=== PATIENT | female | born 1950 | race Caucasian/White ===

== ENCOUNTER → 2016-05-03 | Outpatient (CLI) | payer MEDICARE, BC ==
--- NOTE | 2016-05-03 16:53 | REP ---
TWO VIEW CHEST: COMPARISON: 03/04/2008. There is no evidence of acute infiltrate. No pleural effusion is seen. The heart is normal in size. The mediastinal silhouette is unremarkable. The visualized osseous structures are intact. There are degenerative changes of the spine. IMPRESSION: No acute pulmonary disease. Signed by Santi Aden MD 05/03/2016 07:41 P
== END ==
LOC: M WUC 12:14
PROVIDERS: ATTEND Nurse Practitioner Adult Health
DX: J06.9 Acute upper respiratory infection, unspecified (principal); R05 Cough

== ENCOUNTER 2018-03-27 13:04 | Outpatient (RCR) | payer MEDICARE, BC | END 2018-04-01 | LOC: M OT 13:04 | PROVIDERS: ATTEND Family Medicine | DX: M79.645 Pain in left finger(s) (principal) | CPT/HCPCS: 97010; 97110; 97140; 97165; G8984; G8985 ==

== ENCOUNTER 2018-04-24 12:51 | Outpatient (RCR) | payer MEDICARE, BC | END 2018-05-02 | LOC: M OT 12:51 | PROVIDERS: ATTEND Family Medicine | DX: M79.642 Pain in left hand (principal) ==

== ENCOUNTER → 2020-08-19 | Outpatient (CLI) | payer MEDICARE, BC ==
--- NOTE | 2020-08-19 13:40 | REP ---
INDICATION: RT FEMUR MASS SOFT TISSUE. COMPARISON: None. TECHNIQUE: Multiple sequences obtained in the axial, coronal and sagittal planes. FINDINGS: In the soft tissues deep to the posterior thigh musculature there is a heterogeneous mass. It is diffusely hypointense on T1 weighted images and is predominantly heterogeneously hyperintense on T2 weighted images. There are some areas of ill-defined mild hypointensity scattered throughout the mass. There is adjacent surrounding soft tissue edema both superiorly and inferiorly. The mass measures approximately 13.3 x 6.9 x 9.5 cm. There may be some central ill-defined fluid representing necrosis. A benign oval lipoma is seen in the anterior mid thigh musculature, measuring approximately 2.6 x 0.7 x 1.4 cm. The visualized right femur demonstrates normal bone marrow signal with no edema or lesion identified. There is a small right knee joint effusion. No other mass is seen in the visualized soft tissues. IMPRESSION: Large soft tissue mass deep to the posterior thigh musculature worrisome for sarcoma. Recommend ultrasound-guided biopsy. <Electronically signed by Santi Aden > 08/19/20 [id number]
== END ==
LOC: M RAD 10:28
PROVIDERS: ATTEND Orthopaedic Surgery
DX: M79.89 Other specified soft tissue disorders (principal); D17.9 Benign lipomatous neoplasm, unspecified

== ENCOUNTER 2020-11-14 10:57 | Inpatient (IN) | payer MEDICARE, BC ==
[~2020-11-14] VITALS: Ht 157.5 cm; Wt 75.0 kg
--- NOTE | 2020-11-14 12:40 | REP ---
INDICATION: pre op. COMPARISON: 03/04/2008. TECHNIQUE: Portable chest FINDINGS: The lungs are clear. The heart is not enlarged. There is no failure. IMPRESSION: No active process. <Electronically signed by Rahul Dunn > 11/14/20 [id number]
--- NOTE | 2020-11-14 12:41 | REP ---
INDICATION: trauma. COMPARISON: None. TECHNIQUE: Two views FINDINGS: Spiral fractures midshaft tibia and fibula. Hardware in place distal tibia and fibula. IMPRESSION: Acute spiral fractures mid shaft tibia and fibula. <Electronically signed by Rahul Dunn > 11/14/20 [id number]
--- NOTE | 2020-11-14 12:43 | REP ---
INDICATION: trauma. COMPARISON: None. TECHNIQUE: Two views FINDINGS: Spiral fracture mid shaft of the tibia and midshaft of the fibula. Hardware in place the distal tibia and fibula. IMPRESSION: Spiral midshaft fractures distal tibia and fibula. Hardware in place distal tibia and fibula. No fracture involving the ankle. <Electronically signed by Rahul Dunn > 11/14/20 [id number]
[2020-11-14 13:17] LABS: RSV AMPLIFICATION NEGATIVE (NEGATIVE)
--- NOTE | 2020-11-14 13:23 | REP ---
INDICATION: evaluation from fall. COMPARISON: None. TECHNIQUE: Three views FINDINGS: Nondisplaced fracture proximal fibula. No other fractures. Alignment normal. IMPRESSION: Nondisplaced fracture proximal fibula. <Electronically signed by Rahul Dunn > 11/14/20 [id number]
[2020-11-14] MEDS ORDERED: D5W/0.45% SODIUM CHLORIDE 1,000 ML IV ONE (13:50)
[2020-11-14 14:00] LABS: HEMATOCRIT 31.2 % (36.0-47.0); HEMOGLOBIN 9.6 g/dl (12.0-15.5); MEAN CORPUSCULAR HEMOGLOBIN 25.7 pg (27.0-33.0); MEAN CORPUSCULAR HGB CONC 30.8 g/dl (32.0-36.5); MEAN CORPUSCULAR VOLUME 83.4 fl (80.0-96.0); PLATELET COUNT, AUTOMATED 148 10^3/uL (150-450); RED BLOOD COUNT 3.74 10^6/uL (4.00-5.40)
[2020-11-14 14:02] LABS: WHITE BLOOD COUNT 17.7 10^3/uL (4.0-10.0)
[2020-11-14] MEDS ORDERED: GLUCAGON INJ 1MG VIAL SC PRN (14:15)
[2020-11-14] MEDS ORDERED: MORPHINE 4 MG/ML 1ML VIAL/SYRINGE (J2270) IV PRN (14:15)
[2020-11-14] MEDS ORDERED: DEXTROSE 50% 50 ML SYRINGE IV PRN (14:15)
[2020-11-14] MEDS ORDERED: GLUCOSE 4GM CHEW TABLET PO PRN (14:15)
[2020-11-14 14:21] LABS: BLOOD UREA NITROGEN 10 MG/DL (7-18); CALCIUM LEVEL 8.2 MG/DL (8.8-10.2); CARBON DIOXIDE LEVEL 31 MEQ/L (21-32); CHLORIDE LEVEL 106 MEQ/L (98-107); CREATININE FOR GFR 0.69 MG/DL (0.55-1.30); GLOMERULAR FILTRATION RATE > 60.0 (>39); GLUCOSE, FASTING 61 MG/DL (70-100); POTASSIUM SERUM 4.6 MEQ/L (3.5-5.1); SODIUM LEVEL 142 MEQ/L (136-145)
[2020-11-14 14:27] LABS: ATYPICAL LYMPH 14 % (0-5); BLAST CELLS 3 % (0-0); LYMPHOCYTES 11 % (16-44); MONOCYTES 6 % (0-5); NEUTROPHILS 41 % (28-66); PLATELET ESTIMATE NORMAL (NORMAL)
[2020-11-14 14:28] LABS: HYPOCHROMASIA 1+; PLATELET CLUMPS SMALL AMT
[2020-11-14 14:29] LABS: BURR CELLS 1+; POLYCHROMASIA 1+
[2020-11-14] MEDS ORDERED: FENTANYL REMOVAL DOCUMENTATION MISC XX SCH (14:30)
[2020-11-14] MEDS ORDERED: D5W/0.9% SODIUM CHLORIDE 1,000 ML IV SCH (14:55)
--- NOTE | 2020-11-14 14:56 | REP ---
INDICATION: further evaluation pre-op. COMPARISON: None. TECHNIQUE: Axial scans without contrast. FINDINGS: There is a spiral comminuted fracture involving the mid-distal shaft of the tibia with a large butterfly fragment. There is slight lateral displacement the distal fragment. There is a spiral fracture involving the midshaft of the fibula as well. Hardware is in place in the medial malleolus and distal fibula after old fractures. IMPRESSION: Spiral comminuted fracture mid-distal shaft of the tibia with large butterfly fragment. Spiral fracture distal-mid shaft fibula. <Electronically signed by Rahul Dunn > 11/14/20 [id number]
[2020-11-14] MEDS ORDERED: HYDR-3363 PO (15:28)
[2020-11-14] MEDS ORDERED: ONDA8TAB10 PO (15:28)
[2020-11-14] MEDS ORDERED: D31000TA2 PO (15:28)
[2020-11-14] MEDS ORDERED: OMEG10002 PO (15:28)
[2020-11-14] MEDS ORDERED: ENAL20TA11 PO (15:28)
[2020-11-14] MEDS ORDERED: PANT40TA29 PO (15:28)
[2020-11-14] MEDS ORDERED: FENT50DI5 TOP (15:28)
[2020-11-14] MEDS ORDERED: ATOR1TAB21 PO (15:28)
[2020-11-14] MEDS ORDERED: OLAN1TAB16 PO (15:28)
[2020-11-14] MEDS ORDERED: FLUO40CA PO (15:28)
[2020-11-14] MEDS ORDERED: SENN1TAB41 PO (15:28)
[2020-11-14] MEDS ORDERED: ASPI-255 PO (15:28)
[2020-11-14] MEDS ORDERED: OXYC-517 PO (15:28)
[2020-11-14] MEDS ORDERED: PROC10TA4 PO (15:28)
[2020-11-14] MEDS ORDERED: TOUJ1.2I SQ (15:28)
[2020-11-14] MEDS ORDERED: PREG100C PO (15:28)
[2020-11-14] MEDS: oxyCODONE 5MG TAB PO PRN (16:31)
--- NOTE | 2020-11-14 16:40 | HPEPDOC ---
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 On ROS she reports no recent illness, no recent history of fever, chills, sweats, cough, congestion, chest pain, palpitations, POWERS, LE edema, sick contacts or dizziness. In the ED she was noted to be febrile to 101.4 and was otherwise normotensive, breathing comfortably on room air. Workup was notable for leukocytosis to 17.7, Hgb 9.6, per her recent baseline, platelet 148, na 142, K 4.6, BUN 10, Cr 0.69, glucose 61 while reporting last meal to have been yesterday evening. CXR was wnl without acute pathology, while R ankle XR showed a spiral midshaft fracture in distal tibia and fibula, a R tib/fib XR that showed an acute spiral fracture in midshaft tibia and fibula while R knee XR showed a nondisplaced fracture of the proximal fibula. Given that the R tib/fib fracture occurred on the side that a lso has a sarcoma, the ED reached out to her oncologist who recommended expectant surgery by orthopedics. Orthopedics was consulted and requested a CT of the R ankle with tentative plan to taker to the OR for surgery this evening. In the meantime, medicine was consulted for admission and presurgery medical evaluation. PAST MEDICAL HISTORY: HTN HLD DM RLE stage 3 sarcoma s/p cycle 1 of chemo, pending cycle 2 on 11/22, follows with oncology at [facility], not on CPAP Obesity SOCIAL HISTORY: Tobacco use: none ETOH: none Illicit drug use: none FAMILY HISTORY: Father: not sure of his history Mother: from [place] Children: Asthma Maternal grandmother: pernicious anemia, ischemic bowel ALLERGIES: Please see below. REVIEW OF SYSTEMS: 10 point ROS was completed and otherwise negative, except as noted in the HPI HOME MEDICATIONS: Please see below. PHYSICAL EXAMINATION: VITAL SIGNS: see below GENERAL APPEARANCE: NAD, obese HEENT: NCAT, EOMI, MMM CARDIOVASCULAR: No murmurs, regular but with some ectopy, tele not on in the room, pending EKG LUNGS: CTAB, on room air ABDOMEN: obese, soft, NTND MUSCULOSKELETAL: RLE with red bruising in distal area close to ankle, RLE edema, pain on palpation, LLE wnl without edema or pain EXTREMITIES: WWP, RLE with edema NEUROLOGICAL: CN3-12 intact, RLE limited by pain PSYCHIATRIC: AOx3 LABORATORY DATA and IMAGING: summarized above, please see below for full details MICROBIOLOGY: Please see below. 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 PLAN: Presurgery medical evaluation: -Euvolemic, breathing comfortably on room air, no wheezing without hypoxemia -ordered EKG, recent NSR on 11/06 -She had a TTE on 11/06 that showed normal systolic and diastolic function with EF 569% with no pericardial effusion -Renal function is at baseline and within normal limits -Bp is well controlled, will plan to resume her ACEi tomorrow -She is medically cleared at this time for orthopedic surgery Spiral midshaft fracture in distal tibia and fibula -pending orthopedic surgery, Dr. Valentine consulted -pain management: on fentanyl match per onc 50mg/hr Q72H due for changing today and I am changing it now -oxy 5Q4HP for moderate to severe pain -NPO for surgery -coags DM: -hold injectable antihyperglycemic therapy -Q6H FSBG -Q6H SSI -d5NS at 50cc/hr while NPO and hypoglycemic HTN: -will resume enalapril tomorrow GERD: -is on protonix 40 BID and omeprazole? will change omperazole to pepcid for severe GERD Bipolar, depression, anxiety: -continue olanzapine, setraline, xanax, hydroxyzine per outpatient scripts Sarcoma: -s/p cycle 1 of chemo, pending cycle 2 on 11/22 -Oncology aware of pending orthopedic surgery -continue fentanyl patch and oxy as ntoed above -will continue PRN zofran and compazine HLD: -will continue statin tomorrow AM DVT ppx: TEDs and SCD for now pre-surgery Dispo: medsurg Vital Signs Vital Signs Date Time Temp Pulse Resp B/P (MAP) Pulse Ox O2 Delivery O2 Flow Rate FiO2 11/14/20 14:20 101.6 86 18 123/60 (81) 93 Room Air Laboratory Data Labs 24H Laboratory Tests 2 11/14/20 12:32: Coronavirus (COVID-19)(PCR) NEGATIVE, Influenza Type A (RT-PCR) NEGATIVE, Influenza Type B (RT-PCR) NEGATIVE, Respiratory Syncytial Virus (PCR) NEGATIVE 11/14/20 13:45: Bedside Glucose (Misc Panel) 61L 11/14/20 13:50: Immature Granulocyte % (Auto) , Neutrophils (%) (Auto) , Nucleated Red Blood Cells % (auto) 0.7H, Neutrophils 41, Band Neutrophils 25H, Lymphocytes (Manual) 11L, Monocytes (Manual) 6H, Blastocytes 3H, Atypical Lymphocytes 14H, Polychromasia 1+, Hypochromasia 1+, Macrocytosis 1+, [place] Cells 1+, Platelet Estimate NORMAL, Clumped Platelets SMALL AMT, Anion Gap 5L, Glomerular Filtration Rate > 60.0, Calcium Level 8.2L CBC/BMP Laboratory Tests 11/14/20 13:50 Allergies Coded Allergies: Contrast Media (Verified Allergy, Unknown, 10/27/14) A-FIB/CHADSVASC A-FIB History Current/History of A-Fib/PAF?: No Current PO Anticoag Therapy: No Age/Risk Factor Scoring CHADSVASC: CHADSVASC Response (Comments) Value Age Risk Factor Age 65-74 years old 1 Gender Risk Factor Female 1 Hx of HTN Yes 1 Hx of Stroke/TIA/or VTE No 0 Hx of Diabetes Yes 1 Hx of Vascular Disease No 0 Total 4 Treatment Treatment ordered: NONE Reason Anticoagulant not given: Not indicated/[id number] EKATERINA LOCKETT MD Nov 14, 2020 16:31
[2020-11-14] MEDS ORDERED: HOME MED LIST COMPLETE! XX SCH (17:00)
[2020-11-14] MEDS: ACETAMINOPHEN TAB 650MG DOSE (2X325MG) PO PRN (17:49)
[2020-11-14] MEDS: HumaLOG INSULIN (NovoLOG) PER UNIT SC SCH ×2 (18:00→23:28)
[2020-11-14] MEDS ORDERED: MIDAZOLAM INJ 2MG/2ML VIAL (J2250 PER 1MG) As Ordered ONE (18:26)
[2020-11-14] MEDS ORDERED: fentaNYL 250 MCG/5 ML INJECTION (J3010) As Ordered ONE (18:26)
[2020-11-14] MEDS ORDERED: propofoL 200 MG/20 ML VIAL As Ordered ONE (18:27)
[2020-11-14] MEDS ORDERED: dexameTHASONE 4 MG/ML 1ML VIAL (J1100 PER 1MG) As Ordered ONE (18:27)
[2020-11-14] MEDS ORDERED: LIDOCAINE 2% 100MG/5ML SDV (FOR ANES.) As Ordered ONE (18:27)
[2020-11-14] MEDS ORDERED: ROCURONIUM BROMIDE 50 MG/5 ML VIAL As Ordered ONE ×3 (18:27→20:41)
[2020-11-14] MEDS ORDERED: ONDANSETRON 4MG/2ML VIAL As Ordered ONE (18:27)
[2020-11-14] MEDS ORDERED: CLINDAMYCIN 600 MG/50 ML PREMIX BAG As Ordered ONE (18:57)
[2020-11-14] MEDS ORDERED: TRANEXAMIC ACID 100 MG/ML 10ML VIAL As Ordered ONE (18:58)
[2020-11-14] MEDS ORDERED: SUGAMMADEX SODIUM 500 MG/5 ML VIAL (BRIDION) As Ordered ONE (19:23)
[2020-11-14] MEDS ORDERED: ACETAMINOPHEN 1000MG 100ML IV BTL (OFIRMEV) (J0131 PER 10MG) As Ordered ONE (19:23)
[2020-11-14] MEDS ORDERED: METOCLOPRAMIDE INJ 10MG/2ML VIAL (J2765 PER 1) As Ordered ONE (19:25)
--- NOTE | 2020-11-14 19:27 | CR ---
CONSULTATION DATE: 11/14/2020 REASON FOR CONSULTATION: Right lower extremity pain and deformity. CHIEF COMPLAINT: Right lower extremity pain and deformity. HISTORY OF PRESENT ILLNESS: The patient is a 70-year-old female with a history of stage 3 soft tissue right medial thigh sarcoma as well as diabetes, hypertension, hyperlipidemia, gastroesophageal reflux disease, anemia, bipolar and anxiety, who tripped and fell over her dog at home earlier today, with her daughter witnessing the event. She proceeded to twist her right leg and noted immediate onset of pain and inability to bear weight. She also had a deformity and presented to the Emergency Department for further evaluation. The patient was diagnosed with a right lower extremity tibial shaft and fibular shaft fracture. She has also a prior history of right bimalleolar ankle fracture, open reduction and internal fixation with retained hardware in place. No other areas of pain or concern. PAST MEDICAL HISTORY: The patient's past medical history is as stated above. PAST SURGICAL HISTORY: The patient's past surgical history is as stated above. FAMILY HISTORY: Noncontributory. SOCIAL HISTORY: Tobacco none. Alcohol none. Drugs none. ALLERGIES: 1. CONTRAST. 2. PENICILLIN. MEDICATIONS: See Med Reconciliation. REVIEW OF SYSTEMS: A 10-point review of systems was reviewed and is otherwise as discussed in the HPI. All others negative. PHYSICAL EXAMINATION: GENERAL APPEARANCE: Well-developed, well-nourished, in no acute distress. NEUROLOGICAL: Alert and oriented x4. PSYCH: Normal mood and affect. CARDIOVASCULAR: Regular rate and rhythm. RESPIRATORY: No labored breathing.Equal chest rise and fall. ABDOMEN: Nontender, nondistended. SKIN: Intact, no ecchymosis or breaks in the skin. MUSCULOSKELETAL: Focused exam of the right lower extremity demonstrates skin intact without breaks in the skin. There is a little bit of ecchymosis on the medial aspect of the skin over the distal junction of the tibia. There is a slight deformity there as well. Tender to palpation. The range of motion of the knee and ankle limited secondary to pain but compartments are soft and compressible. No concern for compartment syndrome. No pain in the knee. There is some warmth in the thigh secondary to the sarcoma. Otherwise neurovascularly intact distally. IMAGING: Review of the radiographs of the right lower extremity demonstrates a tibial shaft fracture as well as a fibula shaft fracture. This is at the distal third junction in the tibia. There is no extension into the ankle joint as seen on CT scan which was ordered. ASSESSMENT: This is a 70-year-old female with a traumatic right lower extremity tib fib fracture, closed. I had a long discussion with the patient about the nature of the condition and treatment options. Recommend closed versus open reduction and intermedullary nail fixation. The patient's ortho oncologist and regular oncologist were contacted while the patient was in the Emergency Department to discuss the nature of her situation and recommendations for the treatment. Initial concern was potentially getting into any of the sarcoma, unseating the knee joint as well as the tibia shaft. The recommendation was to proceed with surgery as planned without any concern of sarcoma being in and around the knee itself. PLAN: Based on the recommendations, we will proceed with tibial shaft fracture intermedullary nail fixation. The patient was counseled on this treatment and requested to proceed. She was counseled on the risks and benefits to include but not limited to: bleeding, damage to other structures, pain, stiffness, need for further surgery. She demonstrated understanding and she signed the informed consent. All questions were answered to her full satisfaction. PARK
[2020-11-14] MEDS ORDERED: PHENYLephrine 500MCG 5ML (100MCG/ML) SYRINGE As Ordered ONE (21:14)
[2020-11-14] MEDS ORDERED: ePHEDrine SULFATE 25 MG/5 ML(5MG/ML) SYRINGE As Ordered ONE (21:14)
[2020-11-14] MEDS ORDERED: BUPIVACAINE HCL 0.5% 30 ML VIAL As Ordered ONE (21:19)
[2020-11-14] MEDS ORDERED: LIDOCAINE 1% SDV 30ML VIAL As Ordered ONE (21:19)
[2020-11-14] MEDS ORDERED: ONDANSETRON 4MG/2ML VIAL IV PRN (22:30)
[2020-11-14] MEDS ORDERED: HYDROMORPHONE HCL 0.5 MG/ 0.5 ML SYRINGE (J1170 PER 1) IV PRN (22:30)
[2020-11-14] MEDS ORDERED: LR 1,000 ML IV SCH (22:30)
[2020-11-14] MEDS ORDERED: oxyCODONE 5MG TAB PO PRN (22:30)
[2020-11-14] MEDS ORDERED: fentaNYL 100 MCG/2 ML INJECTION (J3010) IV PRN (22:30)
[2020-11-14 23:00] VITALS: BP 108/50
[2020-11-14 23:30] VITALS: BP 110/54
[2020-11-14] MEDS: fentaNYL 50 MCG/HR PATCH TOP SCH (23:40)
[2020-11-15] VITALS (9 sets, daily range): BP systolic 92–115; BP diastolic 50–68
[2020-11-15 00:13] LABS: INR 1.1; PROTHROMBIN TIME 14.6 SECONDS (12.7-14.5)
[2020-11-15] MEDS ORDERED: NS 500 ML IV ONE (00:55)
[2020-11-15] MEDS: CLINDAMYCIN 600 MG in IV 1 EA IV SCH ×4 (03:04→20:14)
[2020-11-15 04:32] LABS: HEMATOCRIT 27.6 % (36.0-47.0); HEMOGLOBIN 8.6 g/dl (12.0-15.5); MEAN CORPUSCULAR HEMOGLOBIN 26.3 pg (27.0-33.0); MEAN CORPUSCULAR HGB CONC 31.2 g/dl (32.0-36.5); MEAN CORPUSCULAR VOLUME 84.4 fl (80.0-96.0); PLATELET COUNT, AUTOMATED 129 10^3/uL (150-450); RED BLOOD COUNT 3.27 10^6/uL (4.00-5.40); WHITE BLOOD COUNT 21.4 10^3/uL (4.0-10.0)
[2020-11-15 04:45] LABS: BLOOD UREA NITROGEN 11 MG/DL (7-18); CALCIUM LEVEL 7.7 MG/DL (8.8-10.2); CARBON DIOXIDE LEVEL 30 MEQ/L (21-32); CHLORIDE LEVEL 104 MEQ/L (98-107); CREATININE FOR GFR 0.69 MG/DL (0.55-1.30); GLOMERULAR FILTRATION RATE > 60.0 (>39); GLUCOSE, FASTING 246 MG/DL (70-100); MAGNESIUM LEVEL 1.7 MG/DL (1.8-2.4); POTASSIUM SERUM 4.6 MEQ/L (3.5-5.1); SODIUM LEVEL 138 MEQ/L (136-145)
[2020-11-15] MEDS: HumaLOG INSULIN (NovoLOG) PER UNIT SC SCH ×4 (07:42→20:55)
--- NOTE | 2020-11-15 08:04 | REP ---
INDICATION: OR. COMPARISON: Comparison radiographs November 14, 2020.. TECHNIQUE: Fourteen views. 4 minutes 27 seconds of fluoroscopy time is reported. FINDINGS: A sequence of 14 last image hold fluoroscopically obtained spot radiographs of the right calf and ankle document open reduction internal fixation. IMPRESSION: Procedural imaging. <Electronically signed by Nic Cristina > 11/15/20 0800
[2020-11-15] MEDS ORDERED: PROCHLORPERAZINE 5 MG TAB (S0183) PO PRN (08:15)
[2020-11-15] MEDS ORDERED: MAG SULF 1GM/100ML (MAG RUN) 1 GM in IV 1 EA IV ONE (09:00)
[2020-11-15] MEDS: oxyCODONE 5MG TAB PO PRN ×3 (09:25→20:17)
[2020-11-15] MEDS: PANTOPRAZOLE 40MG TAB (PROTONIX) PO SCH ×2 (09:25→20:15)
[2020-11-15] MEDS: ONDANSETRON 4 MG TAB PO PRN (11:29)
--- NOTE | 2020-11-15 11:49 | IPNPDOC ---
Text Note Date of Service The patient was seen on 11/15/20. NOTE SUBJECTIVE: -No acute complaints, pain is well controlled OBJECTIVE: VITAL SIGNS: see below GENERAL APPEARANCE: NAD, obese HEENT: NCAT, EOMI, MMM CARDIOVASCULAR: No murmurs, regular but with some ectopy, tele not on in the room, pending EKG LUNGS: CTAB, on room air ABDOMEN: obese, soft, NTND MUSCULOSKELETAL: RLE , RLE edema, pain on palpation, LLE wnl without edema or pain EXTREMITIES: WWP, RLE NEUROLOGICAL: CN3-12 intact, RLE limited by pain PSYCHIATRIC: AOx3 LABORATORY DATA: reviewed MICROBIOLOGY: Please see below. 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 PLAN: Spiral midshaft fracture in distal tibia and fibula -now POD#1 s/p R intramedullary rodding of tibia and removal of the existing screw by Dr. Valentine -pain management: on fentanyl match per onc 50mg/hr Q72H -oxy 5Q4HP for moderate to severe pain -[id number] per baseline -is on clinda pal-op per ortho -PT/OT per ortho DM: -hold injectable non-insulin antihyperglycemic therapy -ACHS FSBG -ACHS SSI -dc fluids now that she is taking PO HTN: -Resume enalapril this evening with hold parameters GERD: -Protonix 40 BID Bipolar, depression, anxiety: -continue olanzapine, setraline, hydroxyzine Sarcoma: -s/p cycle 1 of chemo, pending cycle 2 on 11/22 -Oncology aware of orthopedic surgery -continue fentanyl patch and oxy as noted above -will continue PRN zofran and compazine HLD: -will continue statin DVT ppx: TEDs and SCD. Dispo: medsurg VS,Fishbone, I+O VS, Fishbone, I+O Laboratory Tests 11/14/20 13:50 11/15/20 04:16 Vital Signs Date Time Temp Pulse Resp B/P (MAP) Pulse Ox O2 Delivery O2 Flow Rate FiO2 11/15/20 06:00 96.6 64 18 110/62 (78) 98 Nasal Cannula 2.0 I&O- Last 24 Hours up to 6 AM 11/15/20 06:00 Intake Total 2120 ml Output Total 975 ml Balance 1145 ml EKATERINA LOCKETT MD Nov 15, 2020 08:22
--- NOTE | 2020-11-15 16:13 | IPNPDOC ---
Text Note Date of Service The patient was seen on 11/15/20. NOTE Ortho Progress Note S: Doing well this afternoon, pain well controlled, no acute events or other complaints. Slept very well overnight. O: VSS RLE: dressings c/d/i, moving all toes and ankle, digits WWP, compartments soft and compressible, no pain with passive toe motion and no concern for compartment syndrome. Labs: Hgb: 8.6 WBC 21.4 G A: 70 F s/p R tibial intramedullary nail fixation and previously placed hardware removal on 11/14/2020, doing well - Abx: 24 hr post-op abx to be completed; also placed on more broad spectrum abx for bandemia - DVT: per hospitalist, to start today - Pain: per hospitalist - Diet: per hospitalist - Activity: 50% WB right lower extremity - PT/OT: please mobilize daily and offer dispo recs - Dispo: pending; follow up at [facility] ortho 2-3 weeks post-op for wound check and suture removal. Jeovanny Brooks [phone] VS,Shania, I+O VS, Richiebone, I+O Laboratory Tests 11/15/20 04:16 Vital Signs Date Time Temp Pulse Resp B/P (MAP) Pulse Ox O2 Delivery O2 Flow Rate FiO2 11/15/20 14:45 18 11/15/20 14:00 99.6 90 92/67 (75) 93 Room Air 11/15/20 06:00 2.0 I&O- Last 24 Hours up to 6 AM 11/15/20 06:00 Intake Total 2120 ml Output Total 975 ml Balance 1145 ml TARSHA BROOKS MD Nov 15, 2020 16:13
--- NOTE | 2020-11-15 16:16 | ECGEPIP ---
[facility] Test Date: 2020-11-15 Pat Name: OSKAR DENG Department: Room: [place] [address] Gender: Female Recruiter Manager: KALINA : 1950 Requested By: EKATERINA Duarte Order Number: [id number] Reading MD: Dakota Brown Measurements Intervals [place] Rate: 76 P: 85 NM: 168 QRS: 9 QRSD: 76 T: 62 QT: 420 QTc: 472 Interpretive Statements Sinus rhythm with premature atrial complexes in a pattern of bigeminy Low voltage QRS Poor R-wave progression No prior ECG available for comparison at the time of interpretation. Electronically Signed on 11-15-2020 16:16:20 EDT by Dakota Brown
--- NOTE | 2020-11-15 17:52 | RO ---
OPERATIVE NOTE DATE OF OPERATION: 11/14/2020 PREOPERATIVE DIAGNOSIS: Right distal third tibial shaft fracture with associated fibular shaft fracture. POSTOPERATIVE DIAGNOSIS: Right distal third tibial shaft fracture with associated fibular shaft fracture. OPERATION PERFORMED: 1. Right lower extremity closed reduction and percutaneous reduction with intramedullary nail fixation of the distal third tibial shaft fracture. 2. Removal of hardware. SURGEON: Samir Valentine MD [place] ATTENDANT: Po Johnson MD ANESTHESIA: INDICATION FOR OPERATION: The patient is a 70-year-old female with significant past medical history for a right thigh soft tissue sarcoma, being treated by [facility] orthopedics and also prior history of a right bimalleolar ankle fracture, status post ORIF, who was walking her dog on the day of presentation when the dog walked under her and she tripped and she twisted her right lower extremity. She had immediate onset of pain and inability to bear weight. She also had a deformity. She presented to the emergency department for evaluation and was diagnosed with right closed tibia and fibula shaft fractures without extension into the ankle joint. After discussion with the patient's oncologist and tumor surgeons in [place], decision was made that it would be in the patient's interest for intramedullary nail fixation and that there was no concern for the sarcoma being in the area around her knee regarding incisions for the surgery. She was then indicated for right lower extremity closed versus open reduction and intramedullary nail fixation and removal of hardware. There was one screw in the medial side of the distal tibia that was going to be in the way of the intramedullary nail and so the plan was to remove this was and then place the nail after achieving adequate reduction. The patient demonstrated understanding of the risks of surgery to include but not limited to bleeding, infection, damage to local structures, pain, stiffness, need for further surgery. She able to sign an informed consent and all questions were answered to their full satisfaction. MATERIAL FORWARDED: Reamings of the intramedullary canal of the tibia. DESCRIPTION OF FINDINGS: The patient had unstable distal third tibial shaft fractures bilateral in nature. This was a closed injury. It was amenable to closed and percutaneous reduction and intramedullary nail fixation. There was a screw in the proximal part of the medial malleolus that required to be removed and this was done uneventfully. Adequate reduction and fixation were achieved with three proximal screws and two distal screws. The size of the nail was 10 mm. During the entirety of the case, the leg was soft and compressible and no concern for compartment syndrome. INFECTION CLASSIFICATION: 1, clean. ESTIMATED BLOOD LOSS: 105 mL DESCRIPTION OF THE OPERATION: The patient was met in the preoperative holding area where the correct name, identity, operative site, laterality and procedure were verified to be correct without discrepancies. The patient's operative site was marked by myself. The patient was then taken to the operating room by nursing and anesthesia providers, placed supine on the operating room table. All bony prominences were padded in standard fashion. An SCD was placed on the left lower extremity, turned on and remained on throughout the case. The patient then underwent general anesthetic and placement of patient's airway without complication. The right lower extremity was then placed on a bone foam with a bump under the right hip. A tourniquet was placed on the right thigh but it was not used. X-rays were brought in to evaluate for appropriate positioning. The extremity was then cleaned with chlorhexidine scrub and also with alcohol. She was then prepped and draped in the usual sterile fashion. A timeout was then called and the patient's name, identity, operative site, laterality and procedure were verified without discrepancies. We also confirmed antibiotic administration with weight based clindamycin within one hour of incision as well as 1 gm of TXA within 15 minutes of incision as well. Once the timeout was completed, we started with the removal of hardware of the proximal screw in the medial malleolus. This was done under fluoroscopic guidance and it was removed without incident. Next, closed reduction was performed with use of traction and percutaneous clamp placement as well as an Esmarch to wrap the fracture site after reduction was achieved. Once reduction was achieved on AP and lateral images, we started with our guide pin placement. A medial parapatellar incision was taken down to the level of the medial patellar retinaculum. A full-thickness incision was taken through the joint capsule for a standard arthrotomy to allow for adequate mobilization of the patella and placement of the guide for the tibial guide pin and reaming devices. The appropriate position of the guide pin was achieved on AP and lateral images. This was advanced in standard fashion. The anterior proximal tibial cortex was opened with an opening reamer. A ball-tip guidewire slightly bent was then placed down into the tibia and reduction was maintained and the guidewire was then advanced into the distal portion of the distal tibia. Excellent position of the ball-tip guidewire was achieved and this was measured. We chose to utilize a 315 mm implant. We then started our reamings, maintaining careful placement of the guide so as not to ream anywhere within the knee joint. We started with a 9 reamer and took this up to a 12. We had planned to put in a 10 nail. Once reaming was completed, the nail was assembled on the jig and it was advanced into the tibia without complication. It was advanced to the appropriate level and reduction was maintained during the entirety of the nail placement. Once it was advanced to the desired position, it was locked distally with two interlocking screws that were placed using perfect match-e-be-nash-she-wish band technique. Once these were placed, we moved up proximally and placed three static screws within the jig in the proximal tibia. Once this was completed, the Esmarch was released and the reduction was maintained. Final x-rays were performed, demonstrating appropriate placement of the implants as well as adequate length of limb and rotation of the fracture. The wounds were then copiously irrigated and closed in layers starting with the medial parapatellar arthrotomy closed with 0 Vicryl and the rest were closed in layers and sterile dressing was applied. Soft dressing was applied. Again the compartments were soft and compressible at the end of the case. No tourniquet was required. Once dressings were on, the patient was then aroused from anesthesia, having tolerated the procedure well and without any complication. She was taken to the PACU and then transitioned back to the floor for further care overnight. Postoperatively, I will have her go 50% weightbearing on the right lower extremity. We will have her follow up with us in about 2-3 weeks or so for wound check and suture removal. She will work with therapy in the hospital and may require short-term rehab. She will get 24 hours of postop antibiotics and start on DVT chemoprophylaxis and the agent to be used will be based on the hospitalist's recommendations and management. The patient is to receive preop antibiotics. She will continue to get postop antibiotics and she will get postop DVT chemoprophylaxis.
[2020-11-15] MEDS: LevoFLOXacin 750 MG TABLET PO SCH (17:54)
--- NOTE | 2020-11-15 18:05 | REPVR ---
PROCEDURE INFORMATION: Exam: CT Abdomen And Pelvis Without Contrast Exam date and time: 11/15/2020 5:25 PM Age: 70 years old Clinical indication: Fever; Additional info: Leukocytosis with bandemia, recent fever TECHNIQUE: Imaging protocol: Computed tomography of the abdomen and pelvis without contrast. Radiation optimization: All CT scans at this facility use at least one of these dose optimization techniques: automated exposure control; mA and/or kV adjustment per patient size (includes targeted exams where dose is matched to clinical indication); or iterative reconstruction. COMPARISON: CT ABD PELVIS W/O FOL BY WIT 10/27/2014 2:20 PM FINDINGS: Liver: There is enlargement of the left lobe of the liver as well as a lobular surface contour of the liver. Findings may indicate the presence of cirrhosis in this patient with no reported history of chronic liver disease. No focal abnormality demonstrated. Gallbladder and bile ducts: Cholelithiasis and hydropic gallbladder. Increased density in the gallbladder may indicate the presence of sludge. No gallbladder wall thickening or pericholecystic fluid. Clinical correlation to exclude cholecystitis suggested. Pancreas: There is diffuse pancreatic atrophy. Spleen: Normal. No splenomegaly. Adrenal glands: 1 cm lipoma right adrenal gland. Kidneys and ureters: Punctate nonobstructive calculus lower pole left kidney. Stomach and bowel: There is increased feces throughout the colon consistent with constipation. Appendix: No evidence of appendicitis. Intraperitoneal space: Minimal free fluid in the cul-de-sac. Vasculature: The aortoiliac vessels demonstrate mild atherosclerotic calcification. Lymph nodes: Unremarkable. No enlarged lymph nodes. Urinary bladder: Unremarkable as visualized. Reproductive: There has been a hysterectomy. Bones/joints: The spine demonstrates mild degenerative changes. Moderate central spinal stenosis L3-L4 and severe central spinal stenosis L4-L5. Mild anterolisthesis of L4 on L5. Soft tissues: There is soft tissue edema demonstrated in the abdominal wall, flanks and buttock regions consistent with anasarca. IMPRESSION: 1. Anasarca. 2. Cholelithiasis and hydropic gallbladder. Increased density in the gallbladder may indicate the presence of sludge. No gallbladder wall thickening or pericholecystic fluid. Clinical correlation to exclude cholecystitis suggested. 3. There is diffuse pancreatic atrophy. 4. There has been a hysterectomy. 5. There is enlargement of the left lobe of the liver as well as a lobular surface contour of the liver. Findings may indicate the presence of cirrhosis in this patient with no reported history of chronic liver disease. No focal abnormality demonstrated. 6. There is increased feces throughout the colon consistent with constipation. Electronically signed by: Hussain De Santiago On 11/15/2020 18:05:22 PM
[2020-11-15] MEDS: ACETAMINOPHEN TAB 650MG DOSE (2X325MG) PO PRN (18:36)
[2020-11-15] MEDS: OMEGA-3 1000MG CAPSULE PO SCH (20:15)
[2020-11-15] MEDS: PREGABALIN 100 MG CAP (LYRICA) PO SCH (20:15)
[2020-11-15] MEDS: ASPIRIN ENTERIC 325 MG TAB PO SCH (20:15)
[2020-11-15] MEDS: ATORVASTATIN 20 MG TAB PO SCH (20:15)
[2020-11-15] MEDS: SENOKOT S TAB PO SCH (20:16)
[2020-11-15] MEDS: OLANZapine 5 MG TAB PO SCH (20:16)
[2020-11-15] MEDS: FLUoxetine 20 MG CAP PO SCH (20:16)
[2020-11-15] MEDS: VITAMIN D 1,000 INTERNATIONAL UNITS TABLET PO SCH (20:16)
[2020-11-15] MEDS: hydrOXYzine 50 MG TAB PO SCH (20:33)
[2020-11-15] MEDS: NYSTATIN CREAM 15 GM TOP SCH (20:33)
[2020-11-15] MEDS: ENALAPRIL MALEATE 10 MG TAB PO SCH (20:58)
[2020-11-15] MEDS ORDERED: PANTOPRAZOLE 40MG TAB (PROTONIX) PO SCH (21:00)
[2020-11-16] VITALS (12 sets, daily range): BP systolic 116–134; BP diastolic 56–64
[2020-11-16] MEDS: oxyCODONE 5MG TAB PO PRN ×5 (04:15→21:13)
[2020-11-16] MEDS: ACETAMINOPHEN TAB 650MG DOSE (2X325MG) PO PRN ×5 (04:33→21:12)
[2020-11-16] MEDS: LevoFLOXacin 750 MG TABLET PO SCH (05:56)
[2020-11-16 07:35] LABS: HEMATOCRIT 23.7 % (36.0-47.0); HEMOGLOBIN 7.5 g/dl (12.0-15.5); MEAN CORPUSCULAR HEMOGLOBIN 26.4 pg (27.0-33.0); MEAN CORPUSCULAR HGB CONC 31.6 g/dl (32.0-36.5); MEAN CORPUSCULAR VOLUME 83.5 fl (80.0-96.0); PLATELET COUNT, AUTOMATED 119 10^3/uL (150-450); RED BLOOD COUNT 2.84 10^6/uL (4.00-5.40); WHITE BLOOD COUNT 19.8 10^3/uL (4.0-10.0)
[2020-11-16 08:02] LABS: BLOOD UREA NITROGEN 11 MG/DL (7-18); CALCIUM LEVEL 7.7 MG/DL (8.8-10.2); CARBON DIOXIDE LEVEL 31 MEQ/L (21-32); CHLORIDE LEVEL 105 MEQ/L (98-107); CREATININE FOR GFR 0.72 MG/DL (0.55-1.30); GLOMERULAR FILTRATION RATE > 60.0 (>39); GLUCOSE, FASTING 199 MG/DL (70-100); POTASSIUM SERUM 4.3 MEQ/L (3.5-5.1); SODIUM LEVEL 140 MEQ/L (136-145)
[2020-11-16] MEDS: PANTOPRAZOLE 40MG TAB (PROTONIX) PO SCH ×2 (08:55→20:25)
[2020-11-16] MEDS: HumaLOG INSULIN (NovoLOG) PER UNIT SC SCH ×4 (08:56→21:19)
[2020-11-16] MEDS: NYSTATIN CREAM 15 GM TOP SCH ×2 (08:57→20:27)
--- NOTE | 2020-11-16 10:50 | IPNPDOC ---
Text Note Date of Service The patient was seen on 11/16/20. NOTE SUBJECTIVE: -No acute complaints, pain is well controlled OBJECTIVE: VITAL SIGNS: see below GENERAL APPEARANCE: NAD, obese HEENT: NCAT, EOMI, MMM CARDIOVASCULAR: No murmurs, RRR LUNGS: CTAB, on room air ABDOMEN: obese, soft, NTND MSK: RLE in dressing with PAMELA over. Toes with full range of motion, WWP. NEUROLOGICAL: CN3-12 intact, RLE limited by pain PSYCHIATRIC: AOx3 LABORATORY DATA: reviewed WBC now 19.8 MICROBIOLOGY: Please see below. Imaging: CT A/P: 1. Anasarca. 2. Cholelithiasis and hydropic gallbladder. Increased density in the gallbladder may indicate the presence of sludge. No gallbladder wall thickening or pericholecystic fluid. Clinical correlation to exclude cholecystitis suggested. 3. There is diffuse pancreatic atrophy. 4. There has been a hysterectomy. 5. There is enlargement of the left lobe of the liver as well as a lobular surface contour of the liver. Findings may indicate the presence of cirrhosis in this patient with no reported history of chronic liver disease. No focal abnormality demonstrated. 6. There is increased feces throughout the colon consistent with constipation. EXAM: R ankle CT: There is a spiral comminuted fracture involving the mid-distal shaft of the tibia with a large butterfly fragment. There is slight lateral displacement the distal fragment. There is a spiral fracture involving the midshaft of the fibula as well. Hardware is in place in the medial malleolus and distal fibula after old fractures. IMPRESSION: Spiral comminuted fracture mid-distal shaft of the tibia with large butterfly fragment. Spiral fracture distal-mid shaft fibula. R knee XR: Nondisplaced fracture proximal fibula. No other fractures. Alignment normal. IMPRESSION: Nondisplaced fracture proximal fibula. CXR: The lungs are clear. The heart is not enlarged. There is no failure. IMPRESSION: No active process. R tib/fib XR: Spiral fractures midshaft tibia and fibula. Hardware in place distal tibia and fibula. IMPRESSION: Acute spiral fractures mid shaft tibia and fibula. R ankle XR: Spiral fracture mid shaft of the tibia and midshaft of the fibula. Hardware in place the distal tibia and fibula. IMPRESSION: Spiral midshaft fractures distal tibia and fibula. Hardware in place distal tibia and fibula. No fracture involving the ankle. 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 PLAN: Spiral midshaft fracture in distal tibia and fibula -now POD#2 s/p R intramedullary rodding of tibia and removal of the existing screw by Dr. Valentine -pain management: on fentanyl match per onc 50mg/hr Q72H -oxy 5Q4HP for moderate to severe pain -[id number] per baseline, for DVT ppx as well -s/p periop clinda and 1d of empiric levaquin -PT/OT, pending dispo recs Leukocytosis with bandemia, recent fever in the ED with a nonfocal examination: -She got neulasta a few days before admission w/ noted leukocytosis with bandemia. Also possibly compounding reactive leukocytosis i/s/o trauma and surgery -s/p periop clinda and 24h of empiric levaquin. Exam remains nonfocal, afebrile. Will dc antibiotics at this time and monitor -BCx NGTD -CXR was unremarkable -No urinary symptoms. However not sure why UA was never sent, I ordered it twice once in the ED and once on the floor. DM: -holding injectable non-insulin antihyperglycemic therapy -ACHS FSBG -ACHS SSI -dc fluids now that she is taking PO HTN: -Enalapril this evening with hold parameters GERD: -Protonix 40 BID Bipolar, depression, anxiety: -continue olanzapine, setraline, hydroxyzine Sarcoma: -s/p cycle 1 of chemo, pending cycle 2 on 11/22 -Oncology aware of orthopedic surgery -continue fentanyl patch and oxy as noted above -will continue PRN zofran and compazine HLD: -will continue statin DVT ppx: TEDs and SCD and [id number] Dispo: medsurg, pending dispo recs from PT/OT . VS,Shania, I+O VS, Shania, I+O Laboratory Tests 11/16/20 07:19 Vital Signs Date Time Temp Pulse Resp B/P (MAP) Pulse Ox O2 Delivery O2 Flow Rate FiO2 11/16/20 09:26 18 11/16/20 06:00 97.3 71 116/59 (78) 97 Room Air 11/16/20 04:45 1.0 I&O- Last 24 Hours up to 6 AM 11/16/20 06:00 Intake Total 2310 ml Output Total 600 ml Balance 1710 ml EKATERINA LOCKETT MD Nov 16, 2020 10:07
[2020-11-16] MEDS ORDERED: RAMELTEON 8 MG TAB (ROZEREM) PO ONE (19:20)
[2020-11-16] MEDS ORDERED: BACLOFEN 5MG PER 1/2 TABLET PO ONE (19:20)
[2020-11-16] MEDS: SENOKOT S TAB PO SCH (20:23)
[2020-11-16] MEDS: ASPIRIN ENTERIC 325 MG TAB PO SCH (20:23)
[2020-11-16] MEDS: PREGABALIN 100 MG CAP (LYRICA) PO SCH (20:23)
[2020-11-16] MEDS: OLANZapine 5 MG TAB PO SCH (20:24)
[2020-11-16] MEDS: OMEGA-3 1000MG CAPSULE PO SCH (20:24)
[2020-11-16] MEDS: hydrOXYzine 50 MG TAB PO SCH (20:24)
[2020-11-16] MEDS: ATORVASTATIN 20 MG TAB PO SCH (20:24)
[2020-11-16] MEDS: VITAMIN D 1,000 INTERNATIONAL UNITS TABLET PO SCH (20:24)
[2020-11-16] MEDS: FLUoxetine 20 MG CAP PO SCH (20:24)
[2020-11-16] MEDS: ENALAPRIL MALEATE 10 MG TAB PO SCH (20:26)
[2020-11-17 06:00] VITALS: BP 132/65
[2020-11-17 06:15] LABS: HEMATOCRIT 31.6 % (36.0-47.0); MEAN CORPUSCULAR HEMOGLOBIN 26.8 pg (27.0-33.0); MEAN CORPUSCULAR VOLUME 83.8 fl (80.0-96.0); PLATELET COUNT, AUTOMATED 132 10^3/uL (150-450); RED BLOOD COUNT 3.77 10^6/uL (4.00-5.40); WHITE BLOOD COUNT 14.9 10^3/uL (4.0-10.0)
[2020-11-17 06:19] LABS: HEMOGLOBIN 10.1 g/dl (12.0-15.5)
[2020-11-17 06:39] LABS: BLOOD UREA NITROGEN 8 MG/DL (7-18); CALCIUM LEVEL 8.6 MG/DL (8.8-10.2); CARBON DIOXIDE LEVEL 33 MEQ/L (21-32); CHLORIDE LEVEL 104 MEQ/L (98-107); CREATININE FOR GFR 0.61 MG/DL (0.55-1.30); GLOMERULAR FILTRATION RATE > 60.0 (>39); GLUCOSE, FASTING 204 MG/DL (70-100); POTASSIUM SERUM 5.3 MEQ/L (3.5-5.1); SODIUM LEVEL 140 MEQ/L (136-145)
[2020-11-17] MEDS: HumaLOG INSULIN (NovoLOG) PER UNIT SC SCH ×4 (08:47→21:37)
[2020-11-17] MEDS: PANTOPRAZOLE 40MG TAB (PROTONIX) PO SCH ×2 (08:47→21:35)
[2020-11-17] MEDS: oxyCODONE 5MG TAB PO PRN ×2 (08:48→17:56)
[2020-11-17] MEDS: ACETAMINOPHEN TAB 650MG DOSE (2X325MG) PO PRN ×2 (08:48→17:56)
[2020-11-17] MEDS: NYSTATIN CREAM 15 GM TOP SCH ×2 (08:57→21:38)
[2020-11-17] MEDS: ONDANSETRON 4 MG TAB PO PRN (09:28)
--- NOTE | 2020-11-17 11:32 | IPNPDOC ---
Text Note Date of Service The patient was seen on 11/17/20. NOTE SUBJECTIVE: -No acute complaints, pain is well controlled OBJECTIVE: VITAL SIGNS: see below GENERAL APPEARANCE: NAD, obese HEENT: NCAT, EOMI, MMM CARDIOVASCULAR: No murmurs, RRR LUNGS: CTAB, on room air ABDOMEN: obese, soft, NTND MSK: RLE in dressing with PAMELA over. Toes with full range of motion, WWP. NEUROLOGICAL: CN3-12 intact, RLE limited by pain PSYCHIATRIC: AOx3 LABORATORY DATA: reviewed WBC now down to 14.9 hgb 10.1 platelets 132 na 140 K 5.3 Cr 0.61 MICROBIOLOGY: Please see below. Imaging: CT A/P: 1. Anasarca. 2. Cholelithiasis and hydropic gallbladder. Increased density in the gallbladder may indicate the presence of sludge. No gallbladder wall thickening or pericholecystic fluid. Clinical correlation to exclude cholecystitis suggested. 3. There is diffuse pancreatic atrophy. 4. There has been a hysterectomy. 5. There is enlargement of the left lobe of the liver as well as a lobular surface contour of the liver. Findings may indicate the presence of cirrhosis in this patient with no reported history of chronic liver disease. No focal abnormality demonstrated. 6. There is increased feces throughout the colon consistent with constipation. EXAM: R ankle CT: There is a spiral comminuted fracture involving the mid-distal shaft of the t ibia with a large butterfly fragment. There is slight lateral displacement the distal fragment. There is a spiral fracture involving the midshaft of the fibula as well. Hardware is in place in the medial malleolus and distal fibula after old fractures. IMPRESSION: Spiral comminuted fracture mid-distal shaft of the tibia with large butterfly fragment. Spiral fracture distal-mid shaft fibula. R knee XR: Nondisplaced fracture proximal fibula. No other fractures. Alignment normal. IMPRESSION: Nondisplaced fracture proximal fibula. CXR: The lungs are clear. The heart is not enlarged. There is no failure. IMPRESSION: No active process. R tib/fib XR: Spiral fractures midshaft tibia and fibula. Hardware in place distal tibia and fibula. IMPRESSION: Acute spiral fractures mid shaft tibia and fibula. R ankle XR: Spiral fracture mid shaft of the tibia and midshaft of the fibula. Hardware in place the distal tibia and fibula. IMPRESSION: Spiral midshaft fractures distal tibia and fibula. Hardware in place distal tibia and fibula. No fracture involving the ankle. 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 PLAN: Spiral midshaft fracture in distal tibia and fibula -now POD#3 s/p R intramedullary rodding of tibia and removal of the existing screw by Dr. Valentine -pain management: on fentanyl match per onc 50mg/hr Q72H -oxy 5Q4HP for moderate to severe pain -[id number] per baseline, for DVT ppx as well -s/p periop clinda and 1d of empiric levaquin. -PT/OT, pending dispo recs Leukocytosis with bandemia, recent fever in the ED with a nonfocal examination: now downtrending -She got neulasta a few days before admission w/ noted leukocytosis with bandemia. Also possibly compounding reactive leukocytosis i/s/o trauma and surgery -s/p periop clinda and 24h of empiric levaquin. Exam remains nonfocal, afebrile. Dc'd antibiotics on 11/16, monitoring -BCx NGTD -CXR was unremarkable -No urinary symptoms. However not sure why UA was never sent, I ordered it twice once in the ED and once on the floor. Acute on chronic anemia: -s/p 2u of blood on 11/16, with good response DM: -holding injectable non-insulin antihyperglycemic therapy -ACHS FSBG -ACHS SSI -dc fluids now that she is taking PO HTN: -Enalapril this evening with hold parameters GERD: -Protonix 40 BID Bipolar, depression, anxiety: -continue olanzapine, setraline, hydroxyzine Sarcoma: -s/p cycle 1 of chemo, pending cycle 2 on 11/22 -Oncology aware of orthopedic surgery -continue fentanyl patch and oxy as noted above -will continue PRN zofran and compazine HLD: -will continue statin DVT ppx: TEDs and SCD and [id number] Dispo: medsurg, pending dispo recs from PT/OT VS,Fishbone, I+O VS, Fishbone, I+O Laboratory Tests 11/17/20 05:45 Vital Signs Date Time Temp Pulse Resp B/P (MAP) Pulse Ox O2 Delivery O2 Flow Rate FiO2 11/17/20 08:48 18 11/17/20 06:41 1.0 11/17/20 06:00 97.5 72 132/65 (87) 94 Nasal Cannula I&O- Last 24 Hours up to 6 AM 11/17/20 06:00 Intake Total 2140 ml Balance 2140 ml EKATERINA LOCKETT MD Nov 17, 2020 09:02
[2020-11-17 14:00] VITALS: BP 136/60
--- NOTE | 2020-11-17 18:46 | IPNPDOC ---
Text Note Date of Service The patient was seen on 11/17/20. NOTE Ortho Progress Note S: Doing well this evening, pain well controlled, no acute events or other complaints. Patient did have a covid exposure so precautions in place and will be here for 14 days after exposure to be monitored. O: VSS RLE: dressings c/d/i, moving all toes and ankle, digits WWP, compartments soft and compressible, no pain with passive toe motion and no concern for compartment syndrome. Labs: Hgb: 8.6 -> 10.1 WBC 21.4 -> 14.9 G -> 204 A: 70 F s/p R tibial intramedullary nail fixation and previously placed hardware removal on 11/14/2020, doing well - Abx: 24 hr post-op abx completed; also placed on more broad spectrum abx for bandemia being managed by Hospitalist - DVT: per hospitalist - Pain: per hospitalist - Diet: per hospitalist - Activity: 50% WB right lower extremity - PT/OT: please mobilize daily and offer dispo recs - Dispo: pending; will be here for 2 weeks since exposure to COVID + individual. Plan for suture removal sometime next week. I will come in for this. Then follow up at [facility] ortho 23 DEC 2020 with me. Jeovanny Brooks [phone] VS,Richiebone, I+O VS, Fishbone, I+O Laboratory Tests 11/17/20 05:45 Vital Signs Date Time Temp Pulse Resp B/P (MAP) Pulse Ox O2 Delivery O2 Flow Rate FiO2 11/17/20 17:56 18 11/17/20 14:00 98.4 84 136/60 (85) 94 Room Air 11/17/20 07:55 1.0 I&O- Last 24 Hours up to 6 AM 11/17/20 06:00 Intake Total 2140 ml Balance 2140 ml TARSHA BROOKS MD Nov 17, 2020 18:46
[2020-11-17 19:53] VITALS: BP 121/67
[2020-11-17] MEDS: OMEGA-3 1000MG CAPSULE PO SCH (21:35)
[2020-11-17] MEDS: VITAMIN D 1,000 INTERNATIONAL UNITS TABLET PO SCH (21:35)
[2020-11-17] MEDS: hydrOXYzine 50 MG TAB PO SCH (21:35)
[2020-11-17] MEDS: FLUoxetine 20 MG CAP PO SCH (21:35)
[2020-11-17] MEDS: SENOKOT S TAB PO SCH (21:35)
[2020-11-17] MEDS: PREGABALIN 100 MG CAP (LYRICA) PO SCH (21:35)
[2020-11-17] MEDS: OLANZapine 5 MG TAB PO SCH (21:35)
[2020-11-17] MEDS: ASPIRIN ENTERIC 325 MG TAB PO SCH (21:36)
[2020-11-17] MEDS: ATORVASTATIN 20 MG TAB PO SCH (21:36)
[2020-11-17] MEDS: ENALAPRIL MALEATE 10 MG TAB PO SCH (21:36)
[2020-11-17] MEDS: fentaNYL 50 MCG/HR PATCH TOP SCH (21:38)
[2020-11-18 06:15] VITALS: BP 136/67
[2020-11-18 08:01] LABS: HEMATOCRIT 30.5 % (36.0-47.0); HEMOGLOBIN 9.7 g/dl (12.0-15.5); MEAN CORPUSCULAR HEMOGLOBIN 26.6 pg (27.0-33.0); MEAN CORPUSCULAR HGB CONC 31.8 g/dl (32.0-36.5); MEAN CORPUSCULAR VOLUME 83.6 fl (80.0-96.0); PLATELET COUNT, AUTOMATED 141 10^3/uL (150-450); RED BLOOD COUNT 3.65 10^6/uL (4.00-5.40)
[2020-11-18 08:22] LABS: BLOOD UREA NITROGEN 8 MG/DL (7-18); CALCIUM LEVEL 8.4 MG/DL (8.8-10.2); CARBON DIOXIDE LEVEL 32 MEQ/L (21-32); CHLORIDE LEVEL 105 MEQ/L (98-107); CREATININE FOR GFR 0.68 MG/DL (0.55-1.30); GLOMERULAR FILTRATION RATE > 60.0 (>39); GLUCOSE, FASTING 251 MG/DL (70-100); POTASSIUM SERUM 4.7 MEQ/L (3.5-5.1); SODIUM LEVEL 139 MEQ/L (136-145)
[2020-11-18] MEDS: HumaLOG INSULIN (NovoLOG) PER UNIT SC SCH ×4 (10:06→21:03)
[2020-11-18] MEDS: PANTOPRAZOLE 40MG TAB (PROTONIX) PO SCH ×2 (10:07→21:03)
[2020-11-18] MEDS: NYSTATIN CREAM 15 GM TOP SCH ×2 (10:07→21:05)
--- NOTE | 2020-11-18 11:13 | IPNPDOC ---
Text Note Date of Service The patient was seen on 11/18/20. NOTE SUBJECTIVE: -No acute complaints, pain is well controlled OBJECTIVE: VITAL SIGNS: see below GENERAL APPEARANCE: NAD, obese HEENT: NCAT, EOMI, MMM CARDIOVASCULAR: No murmurs, RRR LUNGS: CTAB, on room air ABDOMEN: obese, soft, NTND MSK: RLE in dressing with PAMELA over. Toes with full range of motion, WWP. NEUROLOGICAL: CN3-12 intact, RLE limited by pain PSYCHIATRIC: AOx3 LABORATORY DATA: reviewed WBC 18 hgb 9.7 MICROBIOLOGY: Please see below. Imaging: CT A/P: 1. Anasarca. 2. Cholelithiasis and hydropic gallbladder. Increased density in the gallbladder may indicate the presence of sludge. No gallbladder wall thickening or pericholecystic fluid. Clinical correlation to exclude cholecystitis suggested. 3. There is diffuse pancreatic atrophy. 4. There has been a hysterectomy. 5. There is enlargement of the left lobe of the liver as well as a lobular surface contour of the liver. Findings may indicate the presence of cirrhosis in this patient with no reported history of chronic liver disease. No focal abnormality demonstrated. 6. There is increased feces throughout the colon consistent with constipation. EXAM: R ankle CT: There is a spiral comminuted fracture involving the mid-distal shaft of the tibia with a large butterfly fragment. There is slight lateral displacement the distal fragment. There is a spiral fracture involving the midshaft of the fibula as well. Hardware is in place in the medial malleolus and distal fibula after old fractures. IMPRESSION: Spiral comminuted fracture mid-distal shaft of the tibia with large butterfly fragment. Spiral fracture distal-mid shaft fibula. R knee XR: Nondisplaced fracture proximal fibula. No other fractures. Alignment normal. IMPRESSION: Nondisplaced fracture proximal fibula. CXR: The lungs are clear. The heart is not enlarged. There is no failure. IMPRESSION: No active process. R tib/fib XR: Spiral fractures midshaft tibia and fibula. Hardware in place distal tibia and fibula. IMPRESSION: Acute spiral fractures mid shaft tibia and fibula. R ankle XR: Spiral fracture mid shaft of the tibia and midshaft of the fibula. Hardware in place the distal tibia and fibula. IMPRESSION: Spiral midshaft fractures distal tibia and fibula. Hardware in place distal tibia and fibula. No fracture involving the ankle. 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 PLAN: Spiral midshaft fracture in distal tibia and fibula -now POD#4 s/p R intramedullary rodding of tibia and removal of the existing screw by Dr. Valentine -pain management: on fentanyl match per onc 50mg/hr Q72H -oxy 5Q4HP for moderate pain and 10Q6HP for severe pain -[id number] per baseline, for DVT ppx as well -s/p periop clinda and 1d of empiric levaquin. -PT/OT, pending dispo recs Leukocytosis with bandemia, recent fever in the ED with a nonfocal examination: -She got neulasta a few days before admission w/ noted leukocytosis with bandemia. Also possibly compounding reactive leukocytosis i/s/o trauma and surgery -s/p periop clinda and 24h of empiric levaquin. Exam remains nonfocal, afebrile. Dc'd antibiotics on 11/16, monitoring -BCx NGTD -CXR and CT A/P were unremarkable -No urinary symptoms. However not sure why UA was never sent, I ordered it twice once in the ED and once on the floor. -had covid-19 exposure inpatient, no symptoms at this time, on droplet isolation -discussing with ID Acute on chronic anemia: -s/p 2u of blood on 11/16, with good response DM: -holding injectable non-insulin antihyperglycemic therapy -ACHS FSBG -ACHS SSI -dc fluids now that she is taking PO HTN: -Enalapril this evening with hold parameters GERD: -Protonix 40 BID Bipolar, depression, anxiety: -continue olanzapine, setraline, hydroxyzine Sarcoma: -s/p cycle 1 of chemo, pending cycle 2 on 11/22 -Oncology aware of orthopedic surgery -continue fentanyl patch and oxy as noted above -will continue PRN zofran and compazine HLD: -will continue statin DVT ppx: TEDs and SCD and [id number] Dispo: medsurg, pending dispo recs from PT/OT VS,Shania, I+O VS, Nicoe, I+O Laboratory Tests 11/18/20 07:30 Vital Signs Date Time Temp Pulse Resp B/P (MAP) Pulse Ox O2 Delivery O2 Flow Rate FiO2 11/18/20 06:15 97.6 60 16 136/67 (90) 95 Room Air 11/17/20 07:55 1.0 I&O- Last 24 Hours up to 6 AM 11/18/20 06:00 Intake Total 780 ml Balance 780 ml EKATERINA LOCKETT MD Nov 18, 2020 09:08
[2020-11-18] MEDS: oxyCODONE 5MG TAB PO PRN (11:22)
[2020-11-18 14:00] VITALS: BP 108/61
[2020-11-18] MEDS ORDERED: ALBUTEROL 90 MCG/ACT 8GM HFA INHALER INH PRN (16:35)
[2020-11-18] MEDS ORDERED: diphenhydrAMINE 50MG/ML VIAL (J1200) IV PRN (16:35)
[2020-11-18] MEDS ORDERED: NS 1,000 ML IV SCH (16:35)
[2020-11-18] MEDS ORDERED: EPINEPHrine INJ 1 MG/ML 1ML AMP IM PRN (16:35)
[2020-11-18] MEDS ORDERED: methylPREDNISolone 125MG 2ML VIAL IV PRN (16:35)
[2020-11-18] MEDS ORDERED: ALBUTEROL SULFATE 2.5 MG/0.5 ML INH NEB SOLN INH PRN (16:35)
[2020-11-18] MEDS ORDERED: CASIRIVIMAB/IMDEVIMAB 1,200 MG in NS 250 ML IV ONE (18:00)
--- NOTE | 2020-11-18 19:39 | CR ---
INFECTIOUS DISEASE CONSULTATION DATE: 11/18/2020 REASON FOR CONSULTATION: Asked to consult by Dr. Sapp for evaluation of leukocytosis in a patient with thigh sarcoma admitted with a fracture and COVID exposure. HISTORY OF PRESENT ILLNESS: Mrs. Barrera is a 70-year-old female with a history of stage III soft tissue thigh sarcoma status post first cycle of chemotherapy, inpatient, at [facility]. The patient was seen in followup on 11/08/2020 and was treated with Nulasta for neutropenia and fluid overload treated with intravenous (IV) Lasix. The patient was doing well until 11/14/2020, when she tripped and fell over her dog at home and was admitted with a right leg fracture. The patient presented to the emergency room with severe pain, but she was also noted to have a fever up to 102.3 and her white count was 17.3. The patient was seen in consultation with orthopedic surgery for evaluation of a right ankle spiral midshaft fracture in the distal tibia and fibula. She went to the operating room (OR) with Dr. Valentine, who had a percutaneous reduction with intermedullary nail fixation of the distal third tibial shaft fracture. The patient states that she is feeling much better and she is hoping to go home tomorrow. Unfortunately, she had a COVID exposure on 11/15/2020 from a caregiver and has been placed on isolation. The patient denies any cough, runny nose. No nausea, vomiting or diarrhea. No fever or chills in the past 48 hours. She was not vaccinated because she does not believe in the vaccine because it is not FDA approved. She is willing to get monoclonal antibodies for COVID to prevent infection. PAST MEDICAL HISTORY: Significant for: 1. Hypertension. 2. Hyperlipidemia. 3. Diabetes. 4. Right lower extremity thigh sarcoma stage III status post inpatient chemotherapy and Nulasta on 11/08/2020, second cycle of chemotherapy due on 11/22/2020 at [facility]. 5. Obstructive sleep apnea not on continuous positive airway pressure (CPAP). 6. Obesity. PAST SURGICAL HISTORY: Open reduction internal fixation of the right leg fracture. SOCIAL HISTORY: Denies tobacco, alcohol use, drug use. She is a [employer]ism and she lives alone, but her daughter has come to stay with her for her chemotherapy. FAMILY HISTORY: Mother of a myocardial infarction ([place]). ALLERGIES: PENICILLIN, BEE VENOM, CODEINE, CONTRAST MEDIA. MEDICATIONS: - Lipitor 20 mg by mouth at bedtime - Fentanyl 50 mcg every 72 hours - aspirin 325 mg by mouth at bedtime - insulin sliding scale - pregabalin 200 mg by mouth at bedtime - Nystatin topical twice a day - fish oil/Alhambra 3 one capsule by mouth at bedtime - pantoprazole 40 mg by mouth twice a day - albuterol as needed - enalapril 30 mg by mouth at bedtime - vitamin D 1000 units at bedtime - Zofran as needed - olanzapine 5 mg at bedtime LABORATORY DATA: White count 18,000, her white count on admission was 17.7, hemoglobin 9.7, hematocrit 30.5, platelets 141. Sodium 139, potassium 4.7, chloride 105, bicarbonate 32, BUN 8, creatinine 0.68, glucose 251, calcium 8.4, magnesium 1.7. SARS-CoV-2 negative. Influenza A and B/Respiratory Syncytial Virus (RSV) negative on 11/14/2020 and repeat SARS-CoV-2 on 11/18/2020, which is day #3 postexposure was also negative. Blood cultures two sets were negative on 11/14/2020. IMAGING DATA: CT abdomen and pelvis done on 11/15/2020 showed enlargement of the left lobe of the liver, questionable cirrhosis, cholelithiasis, indicates sludge, anasarca, diffuse pancreatic atrophy, hysterectomy and a large amount of stool in the colon due to constipation. Extremity CT shows a spiral comminuted fracture mid-distal shaft of the tibia and fibula. Knee x-ray: Nondisplaced fracture proximal fibula. Chest x-ray: No active process, portable chest. PHYSICAL EXAMINATION: VITAL SIGNS: Temperature 98.3, pulse 68, respirations 18, blood pressure 108/61, oxygen saturation 93% on room air. HEART: Normal S1, S2. No murmurs, rubs or gallops. LUNGS: Clear. No wheezes, rales or rhonchi. ABDOMEN: Soft, nontender. No hepatosplenomegaly. EXTREMITIES: Right thigh slightly swollen and tender, but no lesions. Right lower extremity has a bandage from recent surgery, which was not uncovered. Left leg normal. No clubbing, cyanosis or edema. No redness. IMPRESSION: This is a 70-year-old female status post chemotherapy for a sarcoma of the right thigh, received inpatient chemotherapy. She is not sure of the chemotherapy regimen she is receiving, and Nulasta 11/08/2020. She is admitted with fever up to 102.3 and a fracture of the right leg after she fell. She received perioperative antibiotics with 24 hours of clindamycin 600 mg IV every 6 hours, total of four doses, and then levofloxacin for two days. The patient's fever has resolved. Unfortunately, she had COVID exposure and is not immunized and would benefit from monoclonal antibodies. PLAN: Agree with keeping her off antibiotics. I did discuss with the patient the use of monoclonal antibodies Imdevimab and Casirivimab infusion to prevent COVID after exposure since she is not vaccinated. Patient agrees with the infusion. This could be given IV or, if there is no IV access, subcutaneous injection is also feasible. The case has been discussed with the hospitalist, Dr. Sapp, Infection Control and with [facility]. Continue on COVID isolation. The patient will need to remain on quarantine from COVID exposure for 10 days, from 11/15/2020 until 11/24/2020.
[2020-11-18] MEDS ORDERED: LIDOCAINE 2% MDV 20ML VIAL SC ONE (20:25)
[2020-11-18] MEDS: OLANZapine 5 MG TAB PO SCH (21:03)
[2020-11-18] MEDS: OMEGA-3 1000MG CAPSULE PO SCH (21:03)
[2020-11-18] MEDS: VITAMIN D 1,000 INTERNATIONAL UNITS TABLET PO SCH (21:04)
[2020-11-18] MEDS: FLUoxetine 20 MG CAP PO SCH (21:04)
[2020-11-18] MEDS: PREGABALIN 100 MG CAP (LYRICA) PO SCH (21:04)
[2020-11-18] MEDS: ATORVASTATIN 20 MG TAB PO SCH (21:04)
[2020-11-18] MEDS: hydrOXYzine 50 MG TAB PO SCH (21:04)
[2020-11-18] MEDS: ASPIRIN ENTERIC 325 MG TAB PO SCH (21:04)
[2020-11-18 21:05] VITALS: BP 126/57
[2020-11-18] MEDS: SENOKOT S TAB PO SCH (21:05)
[2020-11-18] MEDS: ENALAPRIL MALEATE 10 MG TAB PO SCH (21:05)
[2020-11-18 22:00] VITALS: BP 126/57
[2020-11-19] VITALS (10 sets, daily range): BP systolic 112–123; BP diastolic 54–69
[2020-11-19 07:32] LABS: HEMATOCRIT 31.6 % (36.0-47.0); HEMOGLOBIN 10.1 g/dl (12.0-15.5); MEAN CORPUSCULAR HEMOGLOBIN 26.7 pg (27.0-33.0); MEAN CORPUSCULAR VOLUME 83.6 fl (80.0-96.0); PLATELET COUNT, AUTOMATED 168 10^3/uL (150-450); RED BLOOD COUNT 3.78 10^6/uL (4.00-5.40)
[2020-11-19 07:37] LABS: WHITE BLOOD COUNT 19.7 10^3/uL (4.0-10.0)
--- NOTE | 2020-11-19 07:44 | IPNPDOC ---
Text Note Date of Service The patient was seen on 11/19/20. NOTE SUBJECTIVE: -No acute complaints, pain is well controlled -Tolerated MABs well, no complications OBJECTIVE: VITAL SIGNS: see below GENERAL APPEARANCE: NAD, obese HEENT: NCAT, EOMI, MMM CARDIOVASCULAR: No murmurs, RRR LUNGS: CTAB, on room air ABDOMEN: obese, soft, NTND MSK: RLE in dressing with PAMELA over. Toes with full range of motion, WWP. NEUROLOGICAL: CN3-12 intact, RLE limited by pain PSYCHIATRIC: AOx3 LABORATORY DATA: reviewed, pending AM labs MICROBIOLOGY: Please see below. Imaging: CT A/P: 1. Anasarca. 2. Cholelithiasis and hydropic gallbladder. Increased density in the gallbladder may indicate the presence of sludge. No gallbladder wall thickening or pericholecystic fluid. Clinical correlation to exclude cholecystitis suggested. 3. There is diffuse pancreatic atrophy. 4. There has been a hysterectomy. 5. There is enlargement of the left lobe of the liver as well as a lobular surface contour of the liver. Findings may indicate the presence of cirrhosis in this patient with no reported history of chronic liver disease. No focal abnormality demonstrated. 6. There is increased feces throughout the colon consistent with constipation. EXAM: R ankle CT: There is a spiral comminuted fracture involving the mid-distal shaft of the tibia with a large butterfly fragment. There is slight lateral displacement the distal fragment. There is a spiral fracture involving the midshaft of the fibula as well. Hardware is in place in the medial malleolus and distal fibula after old fractures. IMPRESSION: Spiral comminuted fracture mid-distal shaft of the tibia with large butterfly fragment. Spiral fracture distal-mid shaft fibula. R knee XR: Nondisplaced fracture proximal fibula. No other fractures. Alignment normal. IMPRESSION: Nondisplaced fracture proximal fibula. CXR: The lungs are clear. The heart is not enlarged. There is no failure. IMPRESSION: No active process. R tib/fib XR: Spiral fractures midshaft tibia and fibula. Hardware in place distal tibia and fibula. IMPRESSION: Acute spiral fractures mid shaft tibia and fibula. R ankle XR: Spiral fracture mid shaft of the tibia and midshaft of the fibula. Hardware in place the distal tibia and fibula. IMPRESSION: Spiral midshaft fractures distal tibia and fibula. Hardware in place distal tibia and fibula. No fracture involving the ankle. 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 PLAN: Spiral midshaft fracture in distal tibia and fibula -now POD#5 s/p R intramedullary rodding of tibia and removal of the existing screw by Dr. Valentine -pain management: on fentanyl match per onc 50mg/hr Q72H -oxy 5Q4HP for moderate pain and 10Q6HP for severe pain -[id number] per baseline, for DVT ppx as well -s/p periop clinda and 1d of empiric Levaquin. -PT/OT -At this time, Ms. Barrera's recent fracture and surgery in the leg that also has the thigh sarcoma gives her a mobility limitations that significantly impairs her mobility with limits her ability to participate in one or more mobility related activities of daily living such as toileting, dressing, grooming and bathing in the customary locations in the home and puts her at high risk for falls with further injury and unfortunately at this time her needs are not addressable by a walker or cane. The use of a wheelchair will significantly improve her ability to participate in the above mentioned activities. Leukocytosis with bandemia, recent fever in the ED with a nonfocal examination: -She got neulasta a few days before admission w/ noted leukocytosis with bandemia. Also possibly compounding reactive leukocytosis i/s/o trauma and surgery -s/p periop clinda and 24h of empiric levaquin. Exam remains nonfocal, afebrile. Dc'd antibiotics on 11/16, monitoring. Consulted ID, agreed with no antibiotic therapy. -BCx NGTD -CXR and CT A/P were unremarkable -No urinary symptoms. However not sure why UA was never sent, I ordered it twice once in the ED and once on the floor. -had covid-19 exposure inpatient on 11.15, no symptoms at this time, on droplet isolation, negative covid-19 testing on 11/18. Per ID on self isolation until 11/24. s/p MABs on 11/18. Of note, has not been vaccinated against covid-19. Acute on chronic anemia: -s/p 2u of blood on 11/16, with good response DM: -holding injectable non-insulin antihyperglycemic therapy -ACHS FSBG -ACHS SSI -dc fluids now that she is taking PO HTN: -Enalapril this evening with hold parameters GERD: -Protonix 40 BID Bipolar, depression, anxiety: -continue olanzapine, setraline, hydroxyzine Sarcoma: -s/p cycle 1 of chemo, pending cycle 2 on 11/22 -Oncology aware of orthopedic surgery -continue fentanyl patch and oxy as noted above -will continue PRN zofran and compazine HLD: -will continue statin Covid-19 exposure: -Exposed on 11/15 -On isolation with droplet precaution -ID consulted, now s/p MABs on 11/18 -Covid-19 negative on 11/18 -Has not been vaccinated for covid-19 -To complete isolation on 11/24 DVT ppx: TEDs and SCD and [id number] Dispo: medsurg, plan on home discharge today with outpatient vs. home PT VS,Fishbone, I+O VS, Fishbone, I+O Vital Signs Date Time Temp Pulse Resp B/P (MAP) Pulse Ox O2 Delivery O2 Flow Rate FiO2 11/19/20 06:00 97.9 67 20 120/55 (76) 93 Room Air 11/17/20 07:55 1.0 I&O- Last 24 Hours up to 6 AM 11/19/20 06:00 Intake Total 1560 ml Output Total 0 ml Balance 1560 ml EKATERINA LOCKETT MD Nov 19, 2020 07:44
[2020-11-19] MEDS ORDERED: OXYC-517 PO (07:47)
[2020-11-19] MEDS ORDERED: LIDOCAINE 1% MDV 20ML VIAL IM ONE (07:50)
[2020-11-19 07:53] LABS: BLOOD UREA NITROGEN 10 MG/DL (7-18); CALCIUM LEVEL 8.2 MG/DL (8.8-10.2); CARBON DIOXIDE LEVEL 32 MEQ/L (21-32); CHLORIDE LEVEL 100 MEQ/L (98-107); CREATININE FOR GFR 0.73 MG/DL (0.55-1.30); GLOMERULAR FILTRATION RATE > 60.0 (>39); GLUCOSE, FASTING 254 MG/DL (70-100); POTASSIUM SERUM 4.6 MEQ/L (3.5-5.1); SODIUM LEVEL 136 MEQ/L (136-145)
[2020-11-19 08:24] LABS: ANISOCYTOSIS 1+; LYMPHOCYTES 7 % (16-44); METAMYELOCYTES 2 % (0-0); MONOCYTES 10 % (0-5); NEUTROPHILS 76 % (28-66)
[2020-11-19 08:25] LABS: OVALOCYTES 1+; PLATELET ESTIMATE NORMAL (NORMAL); POIKILOCYTOSIS 1+
[2020-11-19] MEDS ORDERED: CASIRIVIMAB/IMDEVIMAB 1,200 MG in NS 250 ML IV ONE (10:00)
[2020-11-19] MEDS: HumaLOG INSULIN (NovoLOG) PER UNIT SC SCH ×2 (10:05→12:00)
[2020-11-19] MEDS: PANTOPRAZOLE 40MG TAB (PROTONIX) PO SCH (10:05)
[2020-11-19] MEDS: NYSTATIN CREAM 15 GM TOP SCH (10:06)
--- NOTE | 2020-11-19 11:21 | DS.PDOC ---
Discharge Summary General Date of Admission Nov 14, 2020 at 23:00 Date of Discharge 11/19/2020 Attending Physician: EKATERINA LOCKETT MD Specialist/Consultants Involve: Elizabeth Painter MD Specialist/Consultants Involve TODD Discharge Summary PROCEDURES PERFORMED DURING STAY: R intramedullary rodding of tibia and removal of the existing screw by Dr. 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 On ROS she reported no recent illness, no recent history of fever, chills, sweats, cough, congestion, chest pain, palpitations, POWERS, LE edema, sick contacts or dizziness. HOSPITAL COURSE: In the ED she was noted to be febrile to 101.4 and was otherwise normotensive, breathing comfortably on room air. Workup was notable for leukocytosis to 17.7, Hgb 9.6, per her recent baseline, platelet 148, na 142, K 4.6, BUN 10, Cr 0.69, glucose 61. CXR was wnl without acute pathology, while R ankle XR showed a spiral midshaft fracture in distal tibia and fibula, a R tib/fib XR that showed an acute spiral fracture in midshaft tibia and fibula while R knee XR showed a nondisplaced fracture of the proximal fibula. Given that the R tib/fib fracture occurred on the side that also has a sarcoma, the ED reached out to her oncologist who recommended expectant surgery by orthopedics. Orthopedics was consulted and was taken to the OR later on 11/14 for R intramedullary rodding of tibia and removal of the existing screw by Dr. Valentine and she was admitted to medicine. Her postop course was c/b persistent leukocytosis with a negative infectious workup after which it was deemed secondary to recent neulasta and reactive from recent trauma and surgery, and covid-19 exposure while inpatient on 11/15 after which she was placed on isolation. On 11/18 she had a negative covid-19 test and ID recommended MABs for post-exposure prophylaxis in this high risk patient who is not covid-19 vaccinated and is receiving chemotherapy. She had the MABs (casirivimab/imdevimab) on 11/19 without any noted complications. I reached out her oncology office and let them know about the exposure, the negative 11/18 test and that we agreed that she would present on Sunday as planned and get pre-admission covid-19 testing with the effort to receive her chemo as planned. According to ID, she is to remain in droplet isolation until 11/24. Due to her sarcoma in her R thigh and her R tib/fib fracture with ongoing pain, she had PT and was recommended for home PT and is being discharged home with PT with wheelchair in the interim. DISCHARGE MEDICATIONS: Please see below. ALLERGIES: Please see below. PHYSICAL EXAMINATION ON DISCHARGE: VITAL SIGNS: Please see below. GENERAL APPEARANCE: NAD, obese HEENT: NCAT, EOMI, MMM CARDIOVASCULAR: No murmurs, RRR LUNGS: CTAB, on room air ABDOMEN: obese, soft, NTND MSK: RLE in dressing with PAMELA over. Toes with full range of motion, WWP. NEUROLOGICAL: CN3-12 intact, RLE limited by pain PSYCHIATRIC: AOx3 LABORATORY DATA: Please see below. Discharge Labs WBC 19.7 Hgb 10.1 Platelets 168 Na 136 K 4.6 Bicarb 32 BUN 10 Cr 0.73 glucose 254 11/18 covid- by PCR - negative 11/14 Blood cultures - negative x 2 IMAGING: CT A/P: 1. Anasarca. 2. Cholelithiasis and hydropic gallbladder. Increased density in the gallbladder may indicate the presence of sludge. No gallbladder wall thickening or pericholecystic fluid. Clinical correlation to exclude cholecystitis suggested. 3. There is diffuse pancreatic atrophy. 4. There has been a hysterectomy. 5. There is enlargement of the left lobe of the liver as well as a lobular surface contour of the liver. Findings may indicate the presence of cirrhosis in this patient with no reported history of chronic liver disease. No focal abnormality demonstrated. 6. There is increased feces throughout the colon consistent with constipation. EXAM: R ankle CT: There is a spiral comminuted fracture involving the mid-distal shaft of the tibia with a large butterfly fragment. There is slight lateral displacement the distal fragment. There is a spiral fracture involving the midshaft of the fibula as well. Hardware is in place in the medial malleolus and distal fibula after old fractures. IMPRESSION: Spiral comminuted fracture mid-distal shaft of the tibia with large butterfly fragment. Spiral fracture distal-mid shaft fibula. R knee XR: Nondisplaced fracture proximal fibula. No other fractures. Alignment normal. IMPRESSION: Nondisplaced fracture proximal fibula. CXR: The lungs are clear. The heart is not enlarged. There is no failure. IMPRESSION: No active process. R tib/fib XR: Spiral fractures midshaft tibia and fibula. Hardware in place distal tibia and fibula. IMPRESSION: Acute spiral fractures mid shaft tibia and fibula. R ankle XR: Spiral fracture mid shaft of the tibia and midshaft of the fibula. Hardware in place the distal tibia and fibula. IMPRESSION: Spiral midshaft fractures distal tibia and fibula. Hardware in place distal tibia and fibula. No fracture involving the ankle. PROGNOSIS: Good ACTIVITY: As tolerated DIET: Consistent carb, 2g sodium DISCHARGE PLAN: Home with home PT with plan for onc follow up as planned, New PCP appt within 7d post [facility] upcoming 1w of chemo admission and ortho within 7d of same. DISPOSITION: Home with home PT DISCHARGE INSTRUCTIONS: Home with home PT with plan for onc follow up as planned, New PCP appt within 7d post [facility] upcoming 1w of chemo admission and ortho within 7d of same. ITEMS TO FOLLOWUP ON ON OUTPATIENT: R tib/fib fracture Oncology follow up New PCP appt DISCHARGE CONDITION: Stable TIME SPENT ON DISCHARGE: 65 minutes. Vital Signs/I&Os Vital Signs Date Time Temp Pulse Resp B/P (MAP) Pulse Ox O2 Delivery O2 Flow Rate FiO2 11/19/20 06:00 97.9 67 20 120/55 (76) 93 Room Air 11/17/20 07:55 1.0 I&O- Last 24 Hours up to 6 AM 11/19/20 06:00 Intake Total 1560 ml Output Total 0 ml Balance 1560 ml Laboratory Data Labs 24H Laboratory Tests 2 11/18/20 11:54: Bedside Glucose (Misc Panel) 316H 11/18/20 13:08: Coronavirus (COVID-19)(PCR) NEGATIVE 11/18/20 16:56: Bedside Glucose (Misc Panel) 245H 11/18/20 20:35: Bedside Glucose (Misc Panel) 275H 11/19/20 06:12: Bedside Glucose (Misc Panel) 271H 11/19/20 07:00: Immature Granulocyte % (Auto) , Neutrophils (%) (Auto) , Nucleated Red Blood Cells % (auto) 0.4H, Neutrophils 76H, Band Neutrophils 5, Lymphocytes (Manual) 7L, Monocytes (Manual) 10H, Metamyelocytes 2H, Poikilocytosis 1+, Anisocytosis 1+, Ovalocytes 1+, Platelet Estimate NORMAL, Anion Gap 4L, Glomerular Filtration Rate > 60.0, Calcium Level 8.2L CBC/BMP Laboratory Tests 11/19/20 07:00 FSBS Laboratory Tests Test 11/18/20 11:54 11/18/20 16:56 11/18/20 20:35 11/19/20 06:12 Range/Units Bedside Glucose (Misc Panel) 316 245 275 271 83-110 MG/DL Microbiology Microbiology 11/14/20 Blood Culture - Preliminary, Resulted No Growth after 72 hours. All specime... 11/14/20 Blood Culture - Preliminary, Resulted No Growth after 72 hours. All specime... Discharge Medications Scheduled Aspirin (Aspirin EC) 325 Mg Tablet.dr, 325 MG PO QHS, (Reported) Atorvastatin Calcium (Atorvastatin Calcium) 20 Mg Tablet, 20 MG PO QHS, (Reported) Cholecalciferol (Vitamin D3) (Vitamin D3) 1,000 Unit Tablet, 1,000 UNITS PO QHS, (Reported) Enalapril Maleate (Enalapril Maleate) 20 Mg Tablet, 40 MG PO QHS, (Reported) Fluoxetine Hcl (Fluoxetine HCl) 40 Mg Capsule, 40 MG PO QHS, (Reported) Hydroxyzine HCl (Hydroxyzine HCl) 25 Mg Tablet, 100 MG PO QHS, (Reported) Insulin Glargine,Hum.rec.anlog (Alondra De La Vega) 300 Unit/1 Ml Insuln.pen, 1 D OSE SQ QHS, (Reported) SLIDING SCALE UP TO 180 UNITS Olanzapine (Olanzapine) 5 Mg Tablet, 5 MG PO QHS, (Reported) Jewett-3/Dha/Epa/Fish Oil (Fish Oil 1,000 mg Softgel) 1 Each Capsule, 1,000 MG PO QHS, (Reported) Pantoprazole Sodium (Pantoprazole Sodium) 40 Mg Tablet.dr, 40 MG PO BID, (Repo rted) Pregabalin (Pregabalin) 100 Mg Capsule, 200 MG PO QHS, (Reported) Sennosides/Docusate Sodium (Senna-S Tablet) 1 Each Tablet, 2 TAB PO QHS, (Reported) fentaNYL (fentaNYL) 50 Mcg Patch.td72, 50 MCG TOP Q3RD, (Reported) DUE TO CHANGE 11/14/20 @ 2100, APPLIED TO LEFT ARM Scheduled PRN Ondansetron HCl (Ondansetron HCl) 8 Mg Tablet, 8 MG PO Q8H PRN for NAUSEA OR VOM ITING, (Reported) Oxycodone HCl (Oxycodone HCl) 5 Mg Tablet, 5 MG PO Q4H PRN for MODERATE/SEVERE PAIN (PS 5-10) Prochlorperazine Maleate (Prochlorperazine Maleate) 10 Mg Tablet, 10 MG PO Q6H PRN for NAUSEA OR VOMITING, (Reported) Allergies Coded Allergies: codeine (Verified Allergy, Intermediate, VOMITING, FLUSHED, INCREASED HEART RATE, 11/14/20) Contrast Media (Verified Allergy, Unknown, 10/27/14) Penicillins (Verified Allergy, Unknown, SWELLING, RASH, 11/14/20) CHILDHOOD ALLERGY bee venom protein (honey bee) (Verified Allergy, Unknown, 11/14/20) EKATERINA LOCKETT MD Nov 19, 2020 08:51
== END 2020-11-19 13:30 | disposition home health service (06) | DRG 493 ==
LOC: EDBD 10:57 → M ED 10:57 → ENRESERV 14:40 → M MS5PR 23:00
PROVIDERS: ADMIT Internal Medicine; ATTEND Internal Medicine
PROC: 0QSGXZZ Reposition Right Tibia, External Approach (ICD-10-PCS; 2020-11-14)
PROC: 0QSG36Z Reposition Right Tibia with Intramedullary Internal Fixation Device, Percutaneous Approach (ICD-10-PCS; principal; 2020-11-14 17:00)
DX: S82.241A Displaced spiral fracture of shaft of right tibia, initial encounter for closed fracture (principal); C49.21 Malignant neoplasm of connective and soft tissue of right lower limb, including hip; E87.2 Acidosis; S82.444A Nondisplaced spiral fracture of shaft of right fibula, initial encounter for closed fracture; D72.825 Bandemia; E11.9 Type 2 diabetes mellitus without complications; I10 Essential (primary) hypertension; G47.33 Obstructive sleep apnea (adult) (pediatric); E66.9 Obesity, unspecified; D72.829 Elevated white blood cell count, unspecified; Z92.21 Personal history of antineoplastic chemotherapy; F31.9 Bipolar disorder, unspecified; F41.9 Anxiety disorder, unspecified; W01.0XXA Fall on same level from slipping, tripping and stumbling without subsequent striking against object, initial encounter; Y92.009 Unspecified place in unspecified non-institutional (private) residence as the place of occurrence of the external cause; Z79.82 Long term (current) use of aspirin; Z79.899 Other long term (current) drug therapy; Z88.5 Allergy status to narcotic agent; Z91.041 Radiographic dye allergy status; Z88.0 Allergy status to penicillin; Z91.030 Bee allergy status

== ENCOUNTER → 2020-12-16 | Outpatient (CLI) | payer MEDICARE, BC ==
[~2020-12-16] MED LIST: ASPI-255 PO; ATOR1TAB21 PO; D31000TA2 PO; ENAL20TA11 PO; FENT50DI5 TOP; FLUO40CA PO; HYDR-3363 PO; OLAN1TAB16 PO; OMEG10002 PO; ONDA8TAB10 PO; OXYC-517 PO; PANT40TA29 PO; PREG100C PO; PROC10TA4 PO; SENN1TAB41 PO; TOUJ1.2I SQ
--- NOTE | 2020-12-16 14:00 | REP ---
INDICATION: ORTHOPEDIC AFTERCARE. COMPARISON: 11/14/2020 TECHNIQUE: AP and lateral views FINDINGS: Previously described fractures are unchanged. Status post ORIF unchanged. No new abnormality has developed. IMPRESSION: No significant change. <Electronically signed by Chava Phelan > 12/16/20 2005
--- NOTE | 2020-12-16 14:55 | REP ---
INDICATION: ORTHOPEDIC AFTERCARE. COMPARISON: None. TECHNIQUE: AP and lateral FINDINGS: Previously described fractures are again identified. Patient is status post ORIF with internal fixation plate and screws about the distal fibula and an intramedullary marga in the tibia. The alignment appears near anatomical. IMPRESSION: As above <Electronically signed by Chava Phelan > 12/16/20 [id number]
== END ==
LOC: M SOG 12:42
PROVIDERS: ATTEND Orthopaedic Surgery
DX: Z47.89 Encounter for other orthopedic aftercare (principal); Z87.81 Personal history of (healed) traumatic fracture